=== PATIENT | male | born 1975 | race Caucasian/White ===

== ENCOUNTER 2018-03-24 06:42 | Observation (INO) | payer OTHER ==
[2018-03-24] MEDS ORDERED: METOPROLOL TARTRATE 5 MG/5 ML INJ IV ONE (06:54)
[2018-03-24] MEDS ORDERED: NA CHLORIDE 0.9% 1,000 ML ONE (06:57)
[2018-03-24] MEDS ORDERED: MIDAZOLAM HCL 2 MG/2 ML INJ ONE ×2 (07:04→07:17)
[2018-03-24] MEDS ORDERED: FENTANYL CITR 100 MCG/2 ML ONE (07:04)
[2018-03-24 07:09] LABS: Absolute Lymphocytes (CBC) 2.8 K/uL (0.7-4.9); Absolute Neutrophil 4.2 K/uL (1.8-8.0); Basophils % 1.3 % (0-1.3); Eosinophils % 3.6 % (0-4.4); Hematocrit 53.8 % (39.6-49.0); Lymphocytes % 33.3 % (15.3-44.8); MCH 32.3 pg (27.0-35.0); MCV 92.9 fL (80-100); MPV 8.6 fL (7.6-11.3); Monocytes % 11.7 % (3.3-12.3); RBC Red Blood Cell Count 5.79 M/uL (4.33-5.43)
[2018-03-24 07:14] LABS: Protime INR 0.93
[2018-03-24 07:24] LABS: Albumin 4.3 g/dL (3.2-5.5); Bilirubin Direct 0.1 mg/dL (0-0.2); Bilirubin Total 0.6 mg/dL (0.3-1.2); Protein, Total 7.8 g/dL (6.0-8.3)
[2018-03-24 07:27] LABS: CKMB Creatine Kinase MB 2.3 ng/ml (0.3-4.0)
[2018-03-24] MEDS ORDERED: Enoxaparin 120 MG/0.8 ML SYR SQ ONE (08:00)
[2018-03-24] MEDS ORDERED: MEPERIDINE HCL 25 MG/0.5 ML ONE (08:12)
[2018-03-24 08:19] LABS: Thyroid Stimulating Hormone 2.09 uIU/mL (0.34-5.60)
--- NOTE | 2018-03-24 08:34 | ER ---
Nurse's Notes [facility] Name: Danilo Mendieta Age: 43 yrs Sex: Male : 1975 Arrival Date: 03/24/2018 Time: 06:47 Bed 3 Private MD: Diagnosis: Atrial fibrillation and flutter-with RVR Presentation: 03/24 06:48 Presenting complaint: Patient states: he started feeling bad last night at approx 2000 bb felt short of breath "not right" pt has past history of A-fib symptoms have worsened. Transition of care: patient was not received from another setting of care. Onset of symptoms was March 23, 2018 at 20:00. Risk Assessment: Do you want to hurt yourself or someone else? Patient reports no desire to harm self or others. Initial Sepsis Screen: Does the patient meet any 2 criteria? No. Patient's initial sepsis screen is negative. Does the patient have a suspected source of infection? No. Patient's initial sepsis screen is negative. Care prior to arrival: None. 06:48 Method Of Arrival: Ambulatory bb 06:48 Acuity: JACQUIE 2 bb Triage Assessment: 07:07 General: Appears uncomfortable, ill, obese, Behavior is cooperative, anxious. Pain: bb Complains of pain in chest. Neuro: Level of Consciousness is awake, alert, obeys commands, Oriented to person, place, time, situation, Speech is normal. Cardiovascular: Heart tones S1 S2 present Capillary refill < 3 seconds Rhythm is atrial fibrillation with rapid ventricular response. Respiratory: Respiratory effort is unlabored, shallow, Respiratory pattern is tachypnea. GI: No signs and/or symptoms were reported involving the gastrointestinal system. Derm: Skin is diaphoretic, Skin is pale, Skin temperature is cool. Musculoskeletal: Circulation, motion, and sensation intact. Historical: - Allergies: 07:04 PENICILLINS; bb - Home Meds: 07:04 metoprolol tartrate 50 mg Oral tab 1 tab 2 times per day [Active]; benazepril oral oral bb [Active]; - PMHx: 07:04 Atrial Fib; Hypertension; bb - PSHx: 07:04 Appendectomy; Knee surgery; heart ablasion; thumb sx; bb - Immunization history:: Adult Immunizations up to date. - Social history:: Smoking status: Patient uses tobacco products, smokes one pack cigarettes per day. - Ebola Screening: : No symptoms or risks identified at this time. Screenin:08 Abuse screen: Denies threats or abuse. Nutritional screening: No deficits noted. bb Tuberculosis screening: No symptoms or risk factors identified. Fall Risk None identified. Assessment: 07:11 General: Appears uncomfortable, Behavior is calm, cooperative. Pain: Complains of pain mg2 in chest Pain does not radiate. Pain currently is 6 out of 10 on a pain scale. Quality of pain is described as aching, Pain began 2 hours ago. Is intermittent, Also complains of shortness of breath. Neuro: Level of Consciousness is awake, alert, obeys commands, Oriented to person, place, time, situation. Cardiovascular: Capillary refill < 3 seconds Patient's skin is warm and dry. Rhythm is atrial fibrillation with rapid ventricular response Chest pain is described as diffuse. Respiratory: Airway is patent Respiratory effort is even, unlabored, Respiratory pattern is regular, symmetrical. GI: No signs and/or symptoms were reported involving the gastrointestinal system. : No signs and/or symptoms were reported regarding the genitourinary system. EENT: No signs and/or symptoms were reported regarding the EENT system. Derm: Skin is intact, Skin is pink, warm \\T\\ dry. normal. Musculoskeletal: No signs and/or symptoms reported regarding the musculoskeletal system. 07:33 Reassessment: Patient appears in no apparent distress at this time. Patient and/or ph family updated on plan of care and expected duration. Pain level reassessed. Patient is alert, oriented x 3, equal unlabored respirations, skin warm/dry/pink. Pt resting quietly w/ eyes closed, respirations even and unlabored, awakens easily, denies pain at this time. 07:33 Cardiovascular: Denies chest pain, palpitations, shortness of breath, Capillary refill ph < 3 seconds Patient's skin is warm and dry. Rhythm is sinus rhythm \\T\\ 81 bpm. 08:23 Reassessment: Patient appears in no apparent distress at this time. Patient and/or ph family updated on plan of care and expected duration. Pain level reassessed. Patient is alert, oriented x 3, equal unlabored respirations, skin warm/dry/pink. Pt c/o pain in chest, states, " It is a burning pain." ERP at bedside, pain medication ordered, see MAR, VSS, cardiac rhythm remains sinus at 81 bpm. 09:30 Reassessment: Patient appears in no apparent distress at this time. Patient and/or ph family updated on plan of care and expected duration. Pain level reassessed. Pt sleeping, respirations even and unlabored, awakens easily, awaiting room assignment. 10:20 Reassessment: Patient appears in no apparent distress at this time. Patient and/or ph family updated on plan of care and expected duration. Pain level reassessed. Patient is alert/active/playful, equal unlabored respirations, skin warm/dry/pink. Report called to MORGAN Linton, pt waiting to be taken to 4th floor. Vital Signs: 07:04 BP 135 / 81; Pulse 138; Resp 24 S; Temp 97.2(TE); Pulse Ox 97% on 2 lpm NC; Weight bb 172.37 kg (R); Height 6 ft. 4 in. (193.04 cm) (R); Pain 2/10; 07:19 BP 127 / 93; Pulse 112; Resp 24; Pulse Ox 100% on R/A; ph 07:36 BP 113 / 83; Pulse 86; Resp 20; Pulse Ox 96% on R/A; ph 08:30 BP 112 / 79; Pulse 81; Resp 18; Pulse Ox 99% on 2 lpm NC; ph 09:30 BP 107 / 73; Pulse 75; Resp 18; Temp 97.6; Pulse Ox 99% on 2 lpm NC; ph 07:04 Body Mass Index 46.25 (172.37 kg, 193.04 cm) bb Vitals: 07:19 Cardiac Rhythm Assessment Atrial fibrillation W/rapid ventricular response. ph 07:36 Cardiac Rhythm Assessment Sinus rhythm. ph ED Course: 06:47 Patient arrived in ED. mg2 06:48 Harry Sanz PA is PHCP. jr8 06:48 Rico Self MD is Attending Physician. jr8 06:50 Inserted saline lock: 18 gauge in left wrist, using aseptic technique. Blood collected. bb 06:55 Consent for conscious sedation signed by patient, Procedure consent signed by patient, bb cardioversion for A-fib RVR. 06:55 EKG done, by ED staff, reviewed by Rico Self MD. bb 07:00 Initial lab(s) drawn, by ms, sent to lab. bb 07:03 Triage completed. bb 07:03 XRAY Chest (1 view) In Process Unspecified. EDMS 07:04 Arm band placed on Patient placed in an exam room, on a stretcher, on oxygen, on bb hall monitor, on pulse oximetry. 07:09 Patient has correct armband on for positive identification. Placed in gown. Bed in low bb position. Call light in reach. Side rails up X2. patient monitor on. Pulse ox on. NIBP on. Warm blanket given. 07:13 Inserted saline lock: 20 gauge in right forearm, using aseptic technique. by MORGAN Martinez. mg2 07:20 Assist provider with cardioversion (synchronized) for treatment of A fib with 150 ph joules X 1. Set up for procedure. Performed by Harry LUO Monitored with hall monitor, pulse ox, Post procedure rhythm is unchanged. Patient tolerated well. 07:23 Assist provider with cardioversion (synchronized) for treatment of A fib with 200 ph joules X 1. Set up for procedure. Performed by Harry LUO Monitored with hall monitor, pulse ox, Post procedure rhythm is sinus rhythm. Patient tolerated well. 07:31 EKG done, by ED staff, reviewed by Harry LUO. dh3 07:33 Mickie Hill RN is Primary Nurse. ph 08:33 Kory Rodriguez MD is Hospitalizing Provider. jr8 10:23 Patient admitted, IV remains in place. ph Administered Medications: 07:03 Drug: NS 0.9% 1000 ml Route: IV; Rate: 125 ml/hr; Site: left forearm; mg2 10:00 Follow up: Response: No adverse reaction; IV Status: Infusion continued upon admission ph 07:04 Drug: Metoprolol 5 mg Route: IVP; Site: right forearm; mg2 07:30 Follow up: Response: No adverse reaction ph 07:17 Drug: fentaNYL (PF) 100 mcg Route: IVP; Site: left forearm; ph 07:45 Follow up: Response: No adverse reaction; Patient is sedated ph 07:19 Drug: Versed 4 mg Route: IVP; Site: left forearm; ph 07:45 Follow up: Response: No adverse reaction; Patient is sedated ph 08:22 Drug: Lovenox 120 mg Route: Sub-Q; Site: right lower abdomen; ph 09:00 Follow up: Response: No adverse reaction ph 08:23 Drug: Demerol 25 mg Route: IVP; Site: left forearm; ph 09:00 Follow up: Response: No adverse reaction; Pain is decreased ph 08:38 Drug: Phenergan 12.5 mg Route: IVP; Site: left forearm; ph 09:00 Follow up: Response: No adverse reaction; Nausea is decreased ph 10:03 Drug: amiodarone 200 mg Route: PO; ph 10:15 Follow up: Response: No adverse reaction ph Outcome: 08:33 Decision to Hospitalize by Provider. rolf 10:22 Admitted to Tele accompanied by tech, via wheelchair, room 427, with oxygen, with ph chart, Report called to MORGAN Palafox 10:22 Condition: stable 10:39 Patient left the ED. em1 Signatures: Dispatcher [employer] EDMS Sue Pederson RN RN Jose Bonilla em1 Harry Sanz PA PA jr8 Mcikie Hill RN RN ph Herrera, Deanna [facility] Geovani Mcpherson RN RN mg2
--- NOTE | 2018-03-24 08:34 | EDPHYS ---
Physician Documentation [facility] Name: Danilo Mendieta Age: 43 yrs Sex: Male : 1975 Arrival Date: 03/24/2018 Time: 06:47 Bed 3 Private MD: ED Physician Rico Self HPI: 03/24 07:37 This 43 yrs old Male presents to ER via Ambulatory with complaints of jr8 palpitation, shortness of breath. 07:37 The patient presents with a history of irregular heart beat, heart racing. Context: The jr8 symptoms occur at rest. Onset: The symptoms/episode began/occurred acutely, last night. Duration: The patient or guardian reports a single episode. Modifying factors: The symptoms are aggravated by nothing. The symptoms are alleviated by nothing. Associated signs and symptoms: Pertinent positives: anxiety, SOB, near-syncope. Severity of symptoms: At their worst the symptoms were moderate in the emergency department the symptoms are unchanged. The patient has experienced a previous episode. The patient has not recently seen a physician. Historical: - Allergies: 07:04 PENICILLINS; bb - Home Meds: 07:04 metoprolol tartrate 50 mg Oral tab 1 tab 2 times per day [Active]; benazepril oral oral bb [Active]; - PMHx: 07:04 Atrial Fib; Hypertension; bb - PSHx: 07:04 Appendectomy; Knee surgery; heart ablasion; thumb sx; bb - Immunization history:: Adult Immunizations up to date. - Social history:: Smoking status: Patient uses tobacco products, smokes one pack cigarettes per day. - Ebola Screening: : No symptoms or risks identified at this time. ROS: 07:37 Eyes: Negative for injury, pain, redness, and discharge, ENT: Negative for injury, jr8 pain, and discharge, Neck: Negative for injury, pain, and swelling, Abdomen/GI: Negative for abdominal pain, nausea, vomiting, diarrhea, and constipation, Back: Negative for injury and pain, MS/Extremity: Negative for injury and deformity, Skin: Negative for injury, rash, and discoloration. 07:37 Cardiovascular: Positive for palpitations, Negative for chest pain, edema, orthopnea, paroxysmal nocturnal dyspnea. 07:37 Respiratory: Positive for shortness of breath. 07:37 Neuro: Positive for near syncope, Negative for altered mental status, dizziness, gait disturbance, headache, hearing loss, loss of consciousness, numbness, seizure activity, speech changes, syncope, tingling, tinnitus, tremor, visual changes, weakness. Exam: 07:37 Eyes: Pupils equal round and reactive to light, extra-ocular motions intact. Lids and jr8 lashes normal. Conjunctiva and sclera are non-icteric and not injected. Cornea within normal limits. Periorbital areas with no swelling, redness, or edema. ENT: Nares patent. No nasal discharge, no septal abnormalities noted. Tympanic membranes are normal and external auditory canals are clear. Oropharynx with no redness, swelling, or masses, exudates, or evidence of obstruction, uvula midline. Mucous membranes moist. Neck: Trachea midline, no thyromegaly or masses palpated, and no cervical lymphadenopathy. Supple, full range of motion without nuchal rigidity, or vertebral point tenderness. No Meningismus. Respiratory: Lungs have equal breath sounds bilaterally, clear to auscultation and percussion. No rales, rhonchi or wheezes noted. No increased work of breathing, no retractions or nasal flaring. Abdomen/GI: Soft, non-tender, with normal bowel sounds. No distension or tympany. No guarding or rebound. No evidence of tenderness throughout. Back: No spinal tenderness. No costovertebral tenderness. Full range of motion. Skin: Warm, dry with normal turgor. Normal color with no rashes, no lesions, and no evidence of cellulitis. MS/ Extremity: Pulses equal, no cyanosis. Neurovascular intact. Full, normal range of motion. Neuro: Awake and alert, GCS 15, oriented to person, place, time, and situation. Cranial nerves II-XII grossly intact. Motor strength 5/5 in all extremities. Sensory grossly intact. Cerebellar exam normal. Normal gait. 07:37 Cardiovascular: Rate: tachycardic, actual rate is 157 bpm, Rhythm: irregularly irregular, Pulses: Pulses are 2+ in right radial artery and left radial artery. Heart sounds: normal, normal S1and S2, no S3 or S4, no murmur, no rub, no gallop, Edema: is not appreciated, JVD: is not appreciated. Vital Signs: 07:04 BP 135 / 81; Pulse 138; Resp 24 S; Temp 97.2(TE); Pulse Ox 97% on 2 lpm NC; Weight bb 172.37 kg (R); Height 6 ft. 4 in. (193.04 cm) (R); Pain 2/10; 07:19 BP 127 / 93; Pulse 112; Resp 24; Pulse Ox 100% on R/A; ph 07:36 BP 113 / 83; Pulse 86; Resp 20; Pulse Ox 96% on R/A; ph 08:30 BP 112 / 79; Pulse 81; Resp 18; Pulse Ox 99% on 2 lpm NC; ph 09:30 BP 107 / 73; Pulse 75; Resp 18; Temp 97.6; Pulse Ox 99% on 2 lpm NC; ph 07:04 Body Mass Index 46.25 (172.37 kg, 193.04 cm) bb Procedures: 07:25 Cardioversion: (synchronized) for treatment of A fib, with 150 joules X 1. 200 joules X jr8 1. Post procedure rhythm is sinus rhythm, the patient tolerated the procedure well. Moderate sedation: Pre-procedure assessment: the patient has been NPO 2 hour(s) prior to arrival, ASA physical classification: II - mild/mod systemic disease that does not interfere with daily routines, Airway assessment: able to hyperextend neck, able to maintain airway, can open mouth without difficulty, Mallampati classification of tongue size: II - faucial pillars and soft palate can be visualized, but uvula is masked by the base of the tongue, Monitoring during procedure: playground monitor, continuous pulse oximetry, nurse at bedside at all times, Medications employed: Fentanyl, 100 mcg(s), Versed, 4 mg(s), Post-procedure assessment: the patient is moderately sedated, Ahn sedation score: 5 - sluggish response to a light glabellar tap, Respiratory status: even and unlabored, a reversal agent was not used. MDM: 06:48 Patient medically screened. jr8 07:28 ED course: Patient stated that at 8pm last night started to feel bad. This morning when jr8 coming into work had palpitations, weakness, and shortness of breath. History of Atrial fib with ablation in past. Was in atrial fib with RVR this morning. Patient well within window to cardiovert which was done successfully. Patient doing better now. 08:28 Data reviewed: vital signs, nurses notes, lab test result(s), EKG, radiologic studies, jr8 plain films, and as a result, I will admit patient. Data interpreted: Pulse oximetry: on room air is 96 %. Interpretation: normal. Counseling: I had a detailed discussion with the patient and/or guardian regarding: the historical points, exam findings, and any diagnostic results supporting the discharge/admit diagnosis, lab results, radiology results, the need for further work-up and treatment in the hospital. Physician consultation: Kory Rodriguez MD was called at 08:32, was contacted at 08:33, regarding admission, to the telemetry unit. consult, patient's condition, and will see patient. ED course: Spoke with Dr. Zelaya. Wants us to obs overnight. To start on Amiodarone 200 mg BID. Will see him in office promptly on Monday. . 03/24 06:48 Order name: Basic Metabolic Panel; Complete Time: 07:48 03/24 06:48 Order name: BNP; Complete Time: 07:48 03/24 06:48 Order name: CBC with Diff; Complete Time: 07:48 03/24 06:48 Order name: Ckmb; Complete Time: 07:48 03/24 06:48 Order name: CPK; Complete Time: 07:48 03/24 06:48 Order name: LFT's; Complete Time: 07:48 03/24 06:48 Order name: Magnesium; Complete Time: 07:48 03/24 06:48 Order name: PT-INR; Complete Time: 07:48 03/24 06:48 Order name: Ptt, Activated; Complete Time: 07:48 03/24 06:48 Order name: Troponin (emerg Dept Use Only); Complete Time: 07:48 03/24 06:48 Order name: XRAY Chest (1 view); Complete Time: 10:24 03/24 06:53 Order name: TSH; Complete Time: 08:33 03/24 06:53 Order name: T4 Free; Complete Time: 08:33 03/24 06:48 Order name: EKG; Complete Time: 06:49 03/24 06:48 Order name: Cardiac monitoring; Complete Time: 06:57 03/24 06:48 Order name: EKG - Nurse/Tech; Complete Time: 06:57 03/24 06:48 Order name: IV Saline Lock; Complete Time: 06:57 03/24 06:48 Order name: Labs collected and sent; Complete Time: 06:57 03/24 06:48 Order name: O2 Per Protocol; Complete Time: 06:57 03/24 06:48 Order name: O2 Sat Monitoring; Complete Time: 06:57 03/24 06:53 Order name: Conscious Sedation; Complete Time: 07:41 Administered Medications: 07:03 Drug: NS 0.9% 1000 ml Route: IV; Rate: 125 ml/hr; Site: left forearm; mg2 10:00 Follow up: Response: No adverse reaction; IV Status: Infusion continued upon admission ph 07:04 Drug: Metoprolol 5 mg Route: IVP; Site: right forearm; mg2 07:30 Follow up: Response: No adverse reaction ph 07:17 Drug: fentaNYL (PF) 100 mcg Route: IVP; Site: left forearm; ph 07:45 Follow up: Response: No adverse reaction; Patient is sedated ph 07:19 Drug: Versed 4 mg Route: IVP; Site: left forearm; ph 07:45 Follow up: Response: No adverse reaction; Patient is sedated ph 08:22 Drug: Lovenox 120 mg Route: Sub-Q; Site: right lower abdomen; ph 09:00 Follow up: Response: No adverse reaction ph 08:23 Drug: Demerol 25 mg Route: IVP; Site: left forearm; ph 09:00 Follow up: Response: No adverse reaction; Pain is decreased ph 08:38 Drug: Phenergan 12.5 mg Route: IVP; Site: left forearm; ph 09:00 Follow up: Response: No adverse reaction; Nausea is decreased ph 10:03 Drug: amiodarone 200 mg Route: PO; ph 10:15 Follow up: Response: No adverse reaction ph Disposition: 03/24/18 08:33 Hospitalization ordered by Kory Rodriguez for Observation. Preliminary diagnosis is Atrial fibrillation and flutter - with RVR. - Bed requested for Telemetry/MedSurg (observation). - Status is Observation. em1 - Condition is Stable. - Problem is new. - Symptoms have improved. UTI on Admission? No Addendum: 03/26/2018 10:20 Co-signature as Attending Physician, Rico Self MD I agree with the assessment and w a plan of care. Signatures: Dispatcher [employer] EDSue Almonte, RN RN Jose Bonilla em1 Harry Sanz, VALERIO PA jr8 Mickie Hill RN RN Samantha Perkins RN RN df Rico Self MD MD wa Gardose, Michele, RN RN mg2 Corrections: (The following items were deleted from the chart) 03/24 09:54 08:33 Hospitalization Ordered by Kory Rodriguez MD for Observation. Preliminary df diagnosis is Atrial fibrillation and flutter - with RVR. Bed requested for Telemetry/MedSurg (observation). Status is Observation. Condition is Stable. Problem is new. Symptoms have improved. UTI on Admission? No. jr8 10:39 09:54 03/24/2018 08:33 Hospitalization Ordered by Kory Rodriguez MD for Observation. em1 Preliminary diagnosis is Atrial fibrillation and flutter - with RVR. Bed requested for Telemetry/MedSurg (observation). Status is Observation. Condition is Stable. Problem is new. Symptoms have improved. UTI on Admission? No. df
[2018-03-24] MEDS ORDERED: PROMETHAZINE 25 MG/ML VIAL ONE (08:38)
[2018-03-24] MEDS ORDERED: AMIODARONE HCL 200 MG TAB PO ONE (09:00)
--- NOTE | 2018-03-24 09:17 | P.HP ---
Certification for Inpatient Patient admitted to: Observation With expected LOS: <2 Midnights Patient will require the following post-hospital care: None Practitioner: I am a practitioner with admitting privileges, knowledge of patient current condition, hospital course, and medical plan of care. Services: Services provided to patient in accordance with Admission requirements found in Title 42 Section 412.3 of the Code of Federal Regulations Patient History Date of Service: 03/24/18 Reason for admission: Atrial fibrillation History of Present Illness: Patient is 43 years of age with a history of AFib status post ablation was doing fine yesterday while he was having dinner he noticed ordered, as an impending doom felt a little shortness of breath woke up this morning with a rate of 117 she was admitted from the emergency room with AFib and was cardioverted this morning at the time of my evaluation he was alert oriented responsive back in sinus rhythm no new complaints started smoking recently Allergies Penicillins Allergy (Severe, Verified 06/07/17 09:00) Anaphylaxis Home medications list reviewed: Yes Home Medications: Allopurinol [Zyloprim*] 300 mg PO DAILY 06/07/17 Amiodarone HCl [Pacerone] 200 mg PO DAILY 06/07/17 Benazepril HCl [Lotensin*] 20 mg PO BID 06/07/17 Meloxicam [Mobic*] 7.5 mg PO BID 06/07/17 Metoprolol Tartrate [Lopressor*] 50 mg PO BID 06/07/17 - Past Medical/Surgical History Diabetic: No -: Atrial fibrillation -: Gouty arthropathy -: Osteoarthritis -: Hypertension -: Appendectomy -: Cardiac ablation of atrial fibrillation -: heart ablation -: left thumb sx - Family History Mother -: Hypertension Notes: Grandmother with colon cancer - Social History Alcohol use: No CD- Drugs: No Caffeine use: No Review of Systems 10-point ROS is otherwise unremarkable Physical Examination - Vital Signs Temperature: 97 F Blood Pressure: 135/81 Pulse: 138 Respirations: 14 Pulse Ox (%): 97 - Physical Exam General: Alert, Oriented x3 HEENT: Atraumatic Neck: Supple Respiratory: Clear to auscultation bilaterally Cardiovascular: No edema, Regular rate/rhythm Gastrointestinal: Normal bowel sounds, Soft and benign Musculoskeletal: No clubbing, No swelling Integumentary: No rashes, No breakdown - Studies Laboratory Data (last 24 hrs) 03/24/18 06:45: PT 11.0, INR 0.93, APTT 29.0 03/24/18 06:45: WBC 8.3, Hgb 18.7 H, Hct 53.8 H, Plt Count 221 03/24/18 06:45: B-Natriuretic Peptide 26 03/24/18 06:45: Sodium 139, Potassium 4.0, BUN 18, Creatinine 1.03, Glucose 115 , Magnesium 2.0, Total Bilirubin 0.6, AST 23, ALT 35, Alkaline Phosphatase 71 Assessment and Plan - Problems (Diagnosis) (1) AF (atrial fibrillation) Current Visit: Yes Status: Acute Plan: Patient is 43 years of age history of AFib status post ablation admitted with the rapid onset AFib and was cardioverted currently normal sinus rhythm patient' s hemoglobin is mildly elevated he started smoking recently and is to admit to the hospital for observation start on p.o. amiodarone current fluid intake possible discharge from Qualifiers: Atrial fibrillation type: paroxysmal Qualified Code(s): I48.0 - Paroxysmal atrial fibrillation Discharge Plan: Home Plan to discharge in: 24 Hours - Advance Directives Does patient have a Living Will: No Does patient have a Durable POA for Healthcare: No
--- NOTE | 2018-03-24 10:21 | RAD REPORT ---
EXAM DESCRIPTION: Saad Single View03/24/2018 7:05 am CLINICAL HISTORY: Chest pain COMPARISON: June 2017 FINDINGS: The lungs appear clear of acute infiltrate. The heart is mildly enlarged IMPRESSION: No acute abnormalities displayed
[2018-03-24] MEDS ORDERED: KETOROLAC 30 MG/ML INJ ONE (10:36)
[2018-03-24 11:18] VITALS: BMI 47.1
[2018-03-24] MEDS ORDERED: HYDROCODONE/APAP 5/325 MG TAB PO PRN (11:18)
[2018-03-24 16:32] VITALS: O2SAT 97
[2018-03-24] MEDS: AMIODARONE HCL 200 MG TAB PO SCH ×2 (17:00→20:18)
[2018-03-24 17:22] LABS: Urine Appearance CLEAR; Urine Bilirubin NEGATIVE (NEG); Urine Blood NEGATIVE (NEG); Urine Color YELLOW; Urine Glucose NEGATIVE (NEG); Urine Protein NEGATIVE (NEG); Urine Specific Gravity 1.025 (1.005-1.030); Urine Urobilinogen 0.2 mg/dL (0.2-1.0)
[2018-03-24 17:28] LABS: Urine Microscopic Reflex NO UMIC
[2018-03-24] MEDS ORDERED: BENAZEPRIL 20 MG TAB PO SCH (21:00)
[2018-03-24] MEDS ORDERED: METOPROLOL TAR 50 MG TAB PO SCH (21:00)
[2018-03-24] MEDS ORDERED: DIPHENHYDRAMINE 25 MG TAB/CAP PO ONE (21:46)
[2018-03-25 05:12] LABS: Hematocrit 47.1 % (39.6-49.0); MCH 32.4 pg (27.0-35.0); MCV 92.6 fL (80-100); MPV 9.1 fL (7.6-11.3); RBC Red Blood Cell Count 5.08 M/uL (4.33-5.43)
[2018-03-25 06:54] VITALS: BP 140/93; TEMP 97.5
[2018-03-25] MEDS ORDERED: ALLOPURINOL 300 MG TAB PO SCH (09:00)
--- NOTE | 2018-03-25 09:13 | EKG ---
Test Date: 2018-03-24 Test Time: 07:24:27 Legal Consultant: KATE MEASUREMENT RESULTS: Intervals: Rate: 80 SC: 164 QRSD: 98 QT: 380 QTc: 438 [place]: P: 55 SC: 164 QRS: 22 T: 12 INTERPRETIVE STATEMENTS: Normal sinus rhythm Normal ECG Compared to ECG 03/24/2018 06:48:29 Atrial fibrillation no longer present Electronically Signed On 03-25-18 09:12:21 CDT by Venkata Jarquin
--- NOTE | 2018-03-25 09:13 | EKG ---
Test Date: 2018-03-24 Test Time: 06:48:29 Heel Cover Softener: MEASUREMENT RESULTS: Intervals: Rate: 110 [place]: QRSD: 94 QT: 326 QTc: 441 [place]: P: CA: QRS: 3 T: -4 INTERPRETIVE STATEMENTS: Atrial fibrillation with rapid ventricular response Abnormal ECG Compared to ECG 07/08/2017 21:34:55 Sinus rhythm no longer present ST (T wave) deviation no longer present Electronically Signed On 03-25-18 09:12:26 CDT by Venkata Jarquin
--- NOTE | 2018-03-25 11:26 | P.DS ---
Admission Date: 03/24/18 Discharge Date: 03/25/18 Disposition: AMA-LEFT AGAINST MEDICAL ADVIC Discharge Condition: GOOD Reason for Admission: Atrial fibrillation - Problems (1) AF (atrial fibrillation) Status: Acute Qualifiers: Atrial fibrillation type: paroxysmal Qualified Code(s): I48.0 - Paroxysmal atrial fibrillation Brief History of Present Illness: Patient is 43 years of age with a history of AFib status post ablation was doing fine yesterday while he was having dinner he noticed ordered, as an impending doom felt a little shortness of breath woke up this morning with a rate of 117 she was admitted from the emergency room with AFib and was cardioverted this morning at the time of my evaluation he was alert oriented responsive back in sinus rhythm no new complaints started smoking recently Hospital Course: There with paroxysmal AF he was cardioverted did well during observation left AMA this morning the emergency room doctor did discuss with his wood sawyer he is to start taking amiodarone 200 mg twice a day call the patient this morning informed him about taking amiodarone the prescription will be fax to his pharmacy and he is to follow up with his wood sawyer in 1 or 2 weeks Vital Signs/Physical Exam: Temp Pulse Resp BP Pulse Ox 97.5 F 75 20 140/93 H 98 03/25/18 04:00 03/25/18 04:00 03/25/18 04:00 03/25/18 04:00 03/25/18 04:00 Laboratory Data at Discharge: WBC 7.2 K/uL (4.3-10.9) 03/25/18 04:32 Hgb 16.5 g/dL (13.6-17.9) 03/25/18 04:32 Hct 47.1 % (39.6-49.0) 03/25/18 04:32 Plt Count 190 K/uL (152-406) 03/25/18 04:32 PT 11.0 SECONDS (9.5-12.5) 03/24/18 06:45 INR 0.93 03/24/18 06:45 APTT 29.0 SECONDS (24.3-36.9) 03/24/18 06:45 Sodium 139 mEq/L (135-145) 03/24/18 06:45 Potassium 4.0 mEq/L (3.6-5.0) 03/24/18 06:45 BUN 18 mg/dL (6-20) 03/24/18 06:45 Creatinine 1.03 mg/dL (0.61-1.24) 03/24/18 06:45 Glucose 115 mg/dL (65-120) 03/24/18 06:45 Magnesium 2.0 mg/dL (1.8-2.5) 03/24/18 06:45 Total Bilirubin 0.6 mg/dL (0.3-1.2) 03/24/18 06:45 AST 23 IU/L (10-42) 03/24/18 06:45 ALT 35 IU/L (10-60) 03/24/18 06:45 Alkaline Phosphatase 71 IU/L (42-121) 03/24/18 06:45 B-Natriuretic Peptide 26 pg/ml (<=100) 03/24/18 06:45 Home Medications: Benazepril HCl [Lotensin*] 20 mg PO BID 06/07/17 Metoprolol Tartrate [Lopressor*] 50 mg PO BID 06/07/17 Amiodarone HCl 100 mg PO BID #60 tablet 03/25/18 New Medications: Amiodarone HCl 100 mg PO BID #60 tablet Patient Discharge Instructions: Patient has been instructed to follow up with with his wood sawyer and resume amiodarone Followup: PETRA ZARATE [UNKNOWN] -
[2018-03-25] MEDS ORDERED: AMIODARONE HCL 200 MG TAB PO SCH (21:00)
== END 2018-03-25 06:15 | disposition left against medical advice (07) ==
LOC: ER 06:42 → ERHOLD 08:38 → 4TH 10:20
PROVIDERS: ADMIT Internal Medicine Sleep Medicine; ATTEND Internal Medicine Sleep Medicine
PROC: 5A2204Z Restoration of Cardiac Rhythm, Single (ICD-10-PCS; principal; 2018-03-24)
DX: I48.0 Paroxysmal atrial fibrillation (principal); Z88.0 Allergy status to penicillin; I10 Essential (primary) hypertension; M19.90 Unspecified osteoarthritis, unspecified site; F17.210 Nicotine dependence, cigarettes, uncomplicated
CPT/HCPCS: 36415; 71045; 80048; 80076; 81003; 82550; 82553; 83735; 83880; 84439; 84443; 84484; 85025; 85027; 85610; 85730; 92960; 93005; 96372; 99291; G0378; J1650; J2175; J2250; J2550; J3010; J7030